=== PATIENT | female | born 1995 | race Caucasian/White ===

== ENCOUNTER 2016-05-13 17:37 | Emergency (ER) | payer BC ==
[~2016-05-13] VITALS: Ht 167.6 cm; Wt 51.7 kg
[2016-05-13 17:43] VITALS: Ht 167.6 cm; Wt 51.7 kg
[2016-05-13] MEDS ORDERED: SODIUM CHLORIDE 0.9% 1000ML 500 ML IV STA (18:38)
[2016-05-13] MEDS ORDERED: SODIUM CHLORIDE 0.9% 1000ML 1,000 ML IV STA (18:38)
[2016-05-13] MEDS ORDERED: MONT1TAB3 PO (18:48)
[2016-05-13] MEDS ORDERED: QVRINH80 INH (18:48)
[2016-05-13] MEDS ORDERED: OPTIRAY 320 IV PRN (19:00)
[2016-05-13 19:25] LABS: BASO % 0.2 %; BASO ABS # 0.02 K/uL (0-0.2); EOS % 0.7 %; HEMATOCRIT 34.6 % (37-47); IG% 0.5 %; LYMPH % 22.5 %; MEAN CELL VOLUME 60.1 fL (80-100); MEAN CORPUSCULAR HEMOGLOBIN 20.7 pg (25-34); MEAN CORPUSCULAR HGB CONC 34.4 g/dl (32-36); MONO % 6.6 %; NEUT % 69.5 %; PLATELET COUNT 361 K/uL (130-400); RED BLOOD COUNT 5.76 M/uL (4.2-5.4)
--- NOTE | 2016-05-13 19:32 | EMERGENCY ROOM VISIT NOTE ---
History Report prepared by Alexandro: Kayla Sexton Under the Supervision of: Dr. Macho Alford M.D. First contact with patient: 18:32 Chief Complaint: RESPIRATORY PROBLEMS Stated Complaint: ASTHMA History of Present Illness The patient is a 20 year old female who presents to the Emergency Room with complaints of worsening respiratory difficulty with onset several weeks ago. The patient states that she has a history of asthma. The patient states that she has not been able to control her asthma and she notes that her asthma has been getting worse for about one year. The patient relates that her asthma worsens when it is warm or humid out. This particular episode of asthma has been worsening for several weeks. Last week, the patient was seen at [facility] for her worsening asthma. She was told that her oxygen saturation levels were low and the health care providers there gave her a nebulizer treatment. They also prescribed the patient a steroid inhaler, a nasal spray, Singular, and an oral steroid. She states that she has not been feeling better despite these treatments. The patient states that she has a rescue inhaler. She has used the rescue inhaler twice in the last few hours. The patient states that she has had a productive cough for several weeks. The patient denies a history of blood clots in the leg or lung, a family history of a blood clot. The patient states that she is on control. She states that she traveled to [place] several weeks ago for spring. The patient denies a chance of , vomiting, diarrhea. Source of History: patient Onset: several weeks ago Position: chest Quality: other (asthma flare) Timing: worsening Associated Symptoms: + cough, No diarrhea, No vomiting Review of Systems See HPI for pertinent positives & negatives. A total of 10 systems reviewed and were otherwise negative. Past Medical & Surgical Medical Problems: (1) Asthma (2) Thalassemia minor Family History Cancer Social History Smoking Status: Never Smoker Alcohol Use: occasionally Housing Status: lives with roommate Occupation Status: [employer] Current/Historical Medications Scheduled Beclomethasone Dip (Qvar), 2 PUFFS INH BID Doxycycline Hyclate (Vibramycin), 100 MG PO BID Montelukast Sodium (Singulair), 10 MG PO DAILY Allergies Coded Allergies: No Known Allergies (Unverified , 05/13/16) Physical Exam Vital Signs Date Time Temp Pulse Resp B/P Pulse Ox O2 Delivery O2 Flow Rate FiO2 05/13/16 21:42 36.7 107 16 138/85 100 05/13/16 21:15 107 16 138/85 100 Room Air 05/13/16 19:39 Room Air 05/13/16 19:38 100 16 144/89 97 Room Air 05/13/16 19:17 96 05/13/16 18:58 Room Air 05/13/16 17:43 36.7 122 20 137/81 100 Room Air Physical Exam GENERAL: Patient is in no acute distress. HEENT: No acute trauma, normocephalic atraumatic, mucous membranes moist, no nasal congestion, no scleral icterus. NECK: No stridor, no adenopathy, no meningismus, trachea is midline. LUNGS: Clear to auscultation bilaterally, no wheeze, no rhonchi, breath sounds equal. HEART: Tachycardic with a 2/6 systolic murmur, regular rhythm. ABDOMEN: Soft, nontender, bowel sounds positive, no hernias, no peritonitis. EXTREMITIES: No cyanosis or edema, full range of motion of all the joints without pain or difficulty, no signs for acute trauma. NEUROLOGIC: Oriented x 3, no acute motor or sensory deficits, no focal weakness. SKIN: No rash, no jaundice, no diaphoresis. Medical Decision & Procedures ER Provider Diagnostic Interpretation: CT results as stated below per my review and radiologist interpretation: CT ANGIOGRAM OF THE CHEST CLINICAL HISTORY: Chest pain, shortness of breath, asthma. COMPARISON STUDY: No previous studies for comparison. TECHNIQUE: Following the IV administration of 76 mL of Optiray-320, CT angiogram of the thorax was performed from the thoracic inlet to the lung bases utilizing the pulmonary embolus protocol. Images are reviewed in the axial, sagittal, and coronal planes. IV contrast was administered without complication. MIP imaging was performed. CT DOSE: 195.24 mGy.cm FINDINGS: No pathologically enlarged axillary mediastinal or hilar lymph nodes were visualized. There was no evidence of thoracic aortic dilatation. There are no intimal flaps to indicate thoracic aortic dissection There is suboptimal pulmonary arterial opacification. There are no filling defects to indicate acute pulmonary embolism. No pleural effusions are visualized. The examination is degraded by motion artifact. There is no focal pulmonary consolidation. There are multiple venous collaterals within the left arm and chest wall. There is narrowing of the left subclavian vein which may be secondary to arm position. IMPRESSION: 1. Left subclavian vein narrowing with secondary multiple left chest wall and arm collaterals. This is a nonspecific finding which may be secondary to arm position 2. No evidence of thoracic aortic aneurysm or dissection 3. Suboptimal pulmonary arterial opacification. No emboli are visualized. Given the limited nature of the study, serial leg ultrasonography might be considered in follow-up 4. No evidence of focal pulmonary consolidation Electronically signed by: Cain Carson M.D. 05/13/2016 8:42 PM Dictated Date/Time: 05/13/2016 8:38 PM Laboratory Results 05/13/16 19:14 Red Blood Count 5.76, Mean Corpuscular Volume 60.1, Mean Corpuscular Hemoglobin 20.7, Mean Corpuscular Hemoglobin Concent 34.4, Neutrophils (%) (Auto) 69.5, Lymphocytes (%) (Auto) 22.5, Monocytes (%) (Auto) 6.6, Eosinophils (%) (Auto) 0.7, Basophils (%) (Auto) 0.2, Neutrophils # (Auto) 7.72, Lymphocytes # (Auto) 2.50, Monocytes # (Auto) 0.73, Eosinophils # (Auto) 0.08, Basophils # (Auto) 0.02 05/13/16 19:14 Test 05/13/16 19:14 White Blood Count 11.10 K/uL (4.8-10.8) Red Blood Count 5.76 M/uL (4.2-5.4) Hemoglobin 11.9 g/dL (12.0-16.0) Hematocrit 34.6 % (37-47) Mean Corpuscular Volume 60.1 fL (80-100) Mean Corpuscular Hemoglobin 20.7 pg (25-34) Mean Corpuscular Hemoglobin Concent 34.4 g/dl (32-36) Platelet Count 361 K/uL (130-400) Neutrophils (%) (Auto) 69.5 % Lymphocytes (%) (Auto) 22.5 % Monocytes (%) (Auto) 6.6 % Eosinophils (%) (Auto) 0.7 % Basophils (%) (Auto) 0.2 % Neutrophils # (Auto) 7.72 K/uL (1.4-6.5) Lymphocytes # (Auto) 2.50 K/uL (1.2-3.4) Monocytes # (Auto) 0.73 K/uL (0.11-0.59) Eosinophils # (Auto) 0.08 K/uL (0-0.5) Basophils # (Auto) 0.02 K/uL (0-0.2) RDW Standard Deviation 34.8 fL (36.4-46.3) RDW Coefficient of Variation 16.6 % (11.5-14.5) Immature Granulocyte % (Auto) 0.5 % Immature Granulocyte # (Auto) 0.05 K/uL (0.00-0.02) Microcytosis PRESENT Ovalocytes 1+ Anion Gap 5.0 mmol/L (3-11) Est Creatinine Clear Calc Drug Dose 92.3 ml/min Estimated GFR () 125.1 Estimated GFR (Non- 107.9 BUN/Creatinine Ratio 16.4 (10-20) Calcium Level 9.4 mg/dl (8.5-10.1) Total Bilirubin 1.5 mg/dl (0.2-1) Aspartate Amino Transf (AST/SGOT) 15 U/L (15-37) Alanine Aminotransferase (ALT/SGPT) 21 U/L (12-78) Alkaline Phosphatase 36 U/L (45-117) Troponin I < 0.015 ng/ml (0-0.045) Total Protein 8.3 gm/dl (6.4-8.2) Albumin 4.2 gm/dl (3.4-5.0) Globulin 4.1 gm/dl (2.5-4.0) Albumin/Globulin Ratio 1.0 (0.9-2) Human Chorionic Gonadotropin, Qual NEG (NEG) Laboratory results reviewed by me. Medications Administered Medications (Trade) Dose Ordered Sig/Laura Route Start Time Stop Time Status Last Admin Dose Admin Sodium Chloride 500 ml @ 999 mls/hr Q31M STAT IV 05/13/16 18:38 05/13/16 19:08 DC 05/13/16 19:36 999 MLS/HR Sodium Chloride (Nss 1000ml) 1,000 ml @ 200 mls/hr Q5H STAT IV 05/13/16 18:38 05/13/16 21:55 DC 05/13/16 20:33 200 MLS/HR Doxycycline Hyclate (Vibramycin Cap) 100 mg ONE ONCE PO 05/13/16 21:30 05/13/16 21:31 DC 05/13/16 21:40 100 MG ECG Indication: SOB/dyspnea Rate (beats per minute): 94 Rhythm: normal sinus Findings: no acute ischemic change, no ectopy ED Course 1835: The patient was evaluated in room A4. A complete history and physical exam was performed. 1837: Sodium Chloride 1000 ml @ 200 mls/hr IV, Sodium Chloride 500 ml @ 999 mls/ hr IV 2114: Reevaluated the patient; she feels better. The patient's aunt is now here and I updated her on the patient's case. Discussed results and discharge instructions with the patient and her aunt: They verbalized understanding and agreement. The patient is ready for discharge. 2129: Vibramycin Cap 100 mg PO Medical Decision The patient is a 20 year old female who presents to the ED with complaints of respiratory difficulty. Differential diagnoses considered include: pulmonary embolus, pneumonia, bronchitis, asthma exacerbation, anxiety, electrolyte imbalance, anemia, dysrhythmia. There is a mild leukocytosis, this could be consistent with infection, her recent steroid use or stress. There was no concerning anemia. No significant electrolyte abnormality, kidney failure or hepatitis. testing was negative. EKG showed a sinus rhythm, no acute ischemia. Cardiac enzyme testing times one is not consistent with acute cardiac injury. Chest CT shows no PE or aortic dissection. There was no pneumonia. The study was somewhat compromised with lack of contrast filling. The patient received IV saline, she is doing well. Her lungs are clear, her O2 saturation is adequate, she is not febrile. She is already using inhaled steroids, bronchodilators, Singulair and a nasal spray. She was just on oral steroids. I am going to add doxycycline twice a day for 1 week for the possibility of a bacterial component to this infection. She has been sick for weeks and I do think antibiotics would be warranted. She was given oral doxycycline. The patient was encouraged to continue her other medications. She can return here if not improving or worsening. I did talk with her about some anxiety as a possible cause for some of her symptoms, her aunt was present during this conversation and seemed to agree. Impression Primary Impression: Acute bronchitis Additional Impression: Exacerbation of asthma Scribe Attestation The scribe's documentation has been prepared under my direction and personally reviewed by me in its entirety. I confirm that the note above accurately reflects all work, treatment, procedures, and medical decision making performed by me. Departure Information Dispostion Home / Self-Care Prescriptions Doxycycline Hyclate (VIBRAMYCIN) 100 Mg Cap 100 MG PO BID for 7 Days, #14 CAP Prov: Macho Alford M.D. 05/13/16 Referrals No Doctor, Assigned (PCP) Forms HOME CARE DOCUMENTATION FORM, IMPORTANT VISIT INFORMATION Patient Instructions My [facility] Additional Instructions doxycycline 2x per day for 1 week rest use inhalers as before use xopenex 2-3 puffs every 4 hours as needed for shortness of breath return if worsening lab testing and CT scan today were ok Problem Qualifiers
[2016-05-13 19:45] LABS: ALT/SGPT 21 U/L (12-78); AST/SGOT 15 U/L (15-37); BLOOD UREA NITROGEN 13 mg/dl (7-18); BUN/CREATININE RATIO 16.4 (10-20); CALCIUM 9.4 mg/dl (8.5-10.1); CARBON DIOXIDE 31 mmol/L (21-32); CHLORIDE 103 mmol/L (98-107); CREATININE 0.78 mg/dl (0.60-1.20); GLUCOSE 106 mg/dl (70-99); POTASSIUM 4.6 mmol/L (3.5-5.1); SODIUM 139 mmol/L (136-145)
[2016-05-13 19:47] LABS: COMPLETE YES; MICROCYTOSIS PRESENT; OVALOCYTES 1+
[2016-05-13 19:49] LABS: PREG INTERNAL NEGATIVE QC NEG CLEAR BACKGROUND; PREG INTERNAL POSITIVE QC POS CONTROL LINE
[2016-05-13 19:50] LABS: ALKALINE PHOSPHATASE 36 U/L (45-117)
--- NOTE | 2016-05-13 20:44 | DIAGNOSTIC IMAGING REPORT ---
CT ANGIOGRAM OF THE CHEST CLINICAL HISTORY: Chest pain, shortness of breath, asthma. COMPARISON STUDY: No previous studies for comparison. TECHNIQUE: Following the IV administration of 76 mL of Optiray-320, CT angiogram of the thorax was performed from the thoracic inlet to the lung bases utilizing the pulmonary embolus protocol. Images are reviewed in the axial, sagittal, and coronal planes. IV contrast was administered without complication. MIP imaging was performed. CT DOSE: 195.24 mGy.cm FINDINGS: No pathologically enlarged axillary mediastinal or hilar lymph nodes were visualized. There was no evidence of thoracic aortic dilatation. There are no intimal flaps to indicate thoracic aortic dissection There is suboptimal pulmonary arterial opacification. There are no filling defects to indicate acute pulmonary embolism. No pleural effusions are visualized. The examination is degraded by motion artifact. There is no focal pulmonary consolidation. There are multiple venous collaterals within the left arm and chest wall. There is narrowing of the left subclavian vein which may be secondary to arm position. IMPRESSION: 1. Left subclavian vein narrowing with secondary multiple left chest wall and arm collaterals. This is a nonspecific finding which may be secondary to arm position 2. No evidence of thoracic aortic aneurysm or dissection 3. Suboptimal pulmonary arterial opacification. No emboli are visualized. Given the limited nature of the study, serial leg ultrasonography might be considered in follow-up 4. No evidence of focal pulmonary consolidation Electronically signed by: Cain Carson M.D. 05/13/2016 8:42 PM Dictated Date/Time: 05/13/2016 8:38 PM
[2016-05-13] MEDS ORDERED: DOXY100C PO (21:28)
[2016-05-13] MEDS ORDERED: DOXYCYCLINE HYCLATE 100 MG CAP PO ONE (21:30)
[2016-05-13 21:42] VITALS: BP 138/85; PULSE 107; TEMP 36.7; O2SAT 100
== END 2016-05-13 21:43 | disposition home or self-care (01) ==
LOC: C.EDB 17:40 → C.EDA 21:43
DX: J45.901 Unspecified asthma with (acute) exacerbation (principal); J20.9 Acute bronchitis, unspecified; Z79.3 Long term (current) use of hormonal contraceptives; D56.3 Thalassemia minor